=== PATIENT | female | born 1980 | race Caucasian/White ===

== ENCOUNTER 2017-05-01 14:52 | Outpatient (CLI) | payer MEDICAID ==
[~2017-05-01] VITALS: Ht 156.2 cm; Wt 67.3 kg
[~2017-05-01 14:52] MED LIST: METF500T4 PO; PREN1TAB49 PO
[2017-05-01] MEDS ORDERED: TERBUTALINE 1 ML ONE (15:32)
[2017-05-01] MEDS: LACTATED RINGER'S 1,000 ML IV SCH ×2 (15:47→17:02)
[2017-05-01 15:48] LABS: ADD UMIC NO; UR ASCORBIC ACID NEGATIVE (NEGATIVE); UR BILIRUBIN (Dip) NEGATIVE (NEGATIVE); UR BLOOD (Dip) NEGATIVE (NEGATIVE); UR CLARITY CLEAR (CLEAR); UR COLOR STRAW (YELLOW); UR GLUCOSE (Dip) NEGATIVE (NEGATIVE); UR KETONES (Dip) NEGATIVE (NEGATIVE); UR LEUKOCYTE ESTERASE (Dip) NEGATIVE Leu/ul (NEGATIVE); UR NITRITE (Dip) NEGATIVE (NEGATIVE); UR SPECIFIC GRAVITY (Dip) 1.002 (1.003-1.030); UR TOTAL PROTEIN (Dip) NEGATIVE (NEGATIVE); UR UROBILINOGEN (Dip) NEGATIVE (NEGATIVE)
[2017-05-01 15:49] VITALS: BP 124/59; PULSE 82; RESP 20; Ht 156.2 cm; Wt 67.3 kg
[2017-05-01] MEDS: TERBUTALINE 1 MG/ML INJ SC PRN ×2 (15:51→17:24)
[2017-05-01 16:17] LABS: BASOPHILS % 0.2 % (0.0-2.0); EOSINOPHILS # 0.1 10^3/ul (0.0-0.5); EOSINOPHILS % 1.4 % (0.0-7.0); HEMATOCRIT 30.7 % (37.0-47.0); HEMOGLOBIN 10.9 g/dl (12.0-16.0); LYMPHOCYTES # 1.4 10^3/ul (0.8-2.9); LYMPHOCYTES % 17.9 % (15.0-51.0); MEAN CORPUSCULAR HEMOGLOBIN 30.9 pg (29.0-33.0); MEAN CORPUSCULAR HGB CONC 35.5 g/dl (32.0-37.0); MEAN PLATELET VOLUME 9.9 fl (7.4-10.4); MONOCYTE # 0.5 10^3/ul (0.3-0.9); MONOCYTES % 6.3 % (0.0-11.0); NEUTROPHIL # 5.9 10^3/ul (1.6-7.5); NEUTROPHILS % 73.7 % (39.0-77.0); PLATELET COUNT 304 10^3/UL (140-415); RED BLOOD COUNT 3.53 10^6/ul (4.20-5.40); RED CELL DISTRIBUTION WIDTH 13.2 % (11.5-14.5); WHITE BLOOD COUNT 8.1 10^3/ul (4.8-10.8)
[2017-05-01 16:18] LABS: ADD SCAN DIFF NO
--- NOTE | 2017-05-01 16:19 | RADRPT ---
AMENDMENT: 05/01/2017 4:23:57 PM Tomy Sanchez MD The second item in the IMPRESSION section should state: Breech presentation. PROCEDURE: Obstetrical ultrasound CLINICAL INDICATION: contractions TECHNIQUE: Multiple sonographic images of the pelvis were obtained. The images were reviewed on a PACS workstation. COMPARISON: None FINDINGS: The cervix is not well visualized. There is a single viable intrauterine gestation. Cardiac activity is present with 152 beats per minute. There is a breech presentation. The placenta is fundal. There is no evidence for an abruption or placenta previa. There is a subjectively normal amount of amniotic fluid. Measurements were made in order to determine age. The results are as follows (cm): BPD =7.13 HC =25.73 AC =24.50 FL =5.15 Estimated gestational age by ultrasound of approximately 28 weeks, 2 days. The estimated date of delivery by ultrasound is 07/22/2017. Estimated gestational age by LMP of approximately 27 weeks, 5 days. The estimated date of delivery by LMP is 07/26/2017. EFW = 1198 grams (58th percentile) IMPRESSION: Single viable intrauterine gestation of approximately 28 weeks, 2 days . The estimated date of delivery is 07/22/2017 . Dating by ultrasound is within 4 days of dating by LMP. Cephalic presentation. Estimated weight is in the 58th percentile. RPTAT: EE Physician Jaelyn Date Time Electronically viewed and signed by Physician Jaelyn on 05/01/2017 16:24 /
--- NOTE | 2017-05-01 16:23 | RADRPT ---
PROCEDURE: US OB biophysical profile. CLINICAL INDICATION: evaluation TECHNIQUE: Multiple sonographic images of the pelvis were obtained. The images were reviewed on a PACS workstation. COMPARISON: No prior studies are available for comparison. FINDINGS: The cervix is closed and measures 4.1 cm in length. There is a single viable intrauterine gestation. Cardiac activity is present with 154 beats per min dolores. There is a breech presentation. The placenta is fundal. There is no evidence of placental abruption. There is a normal amount of amniotic fluid with in maximum vertical pocket of 4.1 cm. Biophysical profile: movement 2/2 tone 2/2. breathing 2/2 DIONICIO 2/2 Total 06/09 RPTAT: AA . IMPRESSION: Normal biophysical profile. Breech presentation. Physician Jaelyn Date Time Electronically viewed and signed by Physician Jaelyn on 05/01/2017 16:23 /
[2017-05-01 17:17] LABS: ALBUMIN 3.8 g/dl (3.3-4.9); ALBUMIN/GLOBULIN RATIO 1.35; CALCIUM 8.6 mg/dl (8.4-10.2); CREATININE 0.38 mg/dl (0.44-1.00); POTASSIUM 3.4 mmol/L (3.5-5.1); TOTAL PROTEIN 6.6 g/dl (6.1-8.1)
[2017-05-01] MEDS ORDERED: CALC600T5 PO (17:31)
[2017-05-01] MEDS ORDERED: FERR325C PO (17:31)
--- NOTE | 2017-05-01 17:44 | CONS ---
Date/Time of Note Date/Time of Note DATE: 05/01/17 TIME: 17:34 Consultation Date/Type/Reason Admit Date/Time May 01, 2017 OB triage consult Reason for Consultation This patient is a 37 years old 4 para 3 living 3.all 3 deliveries vaginally, came to the triage clinic complaining of vaginal pressure and possible labor. On examination she is a well-nourished well-developed lady in mid term. Her general vital signs basically are within normal limits with blood pressure 124/59, pulse rate of 82, respiration 20, and temperature 98.7 heart tones were around 150s On pelvic examination cervix was closed long and head was high membranes were intact Laboratory Tests Test 05/01/17 15:30 05/01/17 16:00 Urine Color STRAW Urine Clarity CLEAR Urine pH 7.0 Urine Specific [place] 1.002 Urine Ketones NEGATIVEmg/dL Urine Nitrite NEGATIVEmg/dL Urine Bilirubin NEGATIVEmg/dL Urine Urobilinogen NEGATIVEmg/dL Urine Leukocyte Esterase NEGATIVELeu/ul Urine Hemoglobin NEGATIVEmg/dL Urine Glucose NEGATIVEmg/dL Urine Total Protein NEGATIVEmg/dl Membranes Rupture NEGATIVE Fibronectin NEGATIVE White Blood Count 8.110^3/ul Red Blood Count 3.5310^6/ul Hemoglobin 10.9g/dl Hematocrit 30.7% Mean Corpuscular Volume 87.0fl Mean Corpuscular Hemoglobin 30.9pg Mean Corpuscular Hemoglobin Concent 35.5g/dl Red Cell Distribution Width 13.2% Platelet Count 96115^3/UL Mean Platelet Volume 9.9fl Neutrophils % 73.7% Lymphocytes % 17.9% Monocytes % 6.3% Eosinophils % 1.4% Basophils % 0.2% Nucleated Red Blood Cells % 0.0/100WBC Neutrophils # 5.910^3/ul Lymphocytes # 1.410^3/ul Monocytes # 0.510^3/ul Eosinophils # 0.110^3/ul Basophils # 0.010^3/ul Nucleated Red Blood Cells # 0.010^3/ul Sodium Level 134mmol/L Potassium Level 3.4mmol/L Chloride Level 104mmol/L Carbon Dioxide Level 22mmol/L Anion Gap 11 Blood Urea Nitrogen 7mg/dl Creatinine 0.38mg/dl Glucose Level 98mg/dl Calcium Level 8.6mg/dl Total Bilirubin 0.0mg/dl Direct Bilirubin 0.00mg/dl Indirect Bilirubin 0.0mg/dl Aspartate Amino Transf (AST/SGOT) 17IU/L Alanine Aminotransferase (ALT/SGPT) 19IU/L Alkaline Phosphatase 95IU/L Total Protein 6.6g/dl Albumin 3.8g/dl Globulin 2.80g/dl Albumin/Globulin Ratio 1.35 Current Medications Medications (Trade) Dose Ordered Sig/Rae Route PRN Reason Start Time Stop Time Status Last Admin Dose Admin Lactated Ringer's 1,000 ml @ 125 mls/hr Q8H IV 05/01/17 15:13 05/01/17 17:02 125 MLS/HR Terbutaline Sulfate (Brethine) 1 ml @ ud STK-MED ONCE .ROUTE 05/01/17 15:32 05/01/17 15:33 DC Terbutaline Sulfate (Brethine) 0.25 mg Q30MIN PRN SC CONTRACTIONS 05/01/17 15:30 05/01/17 17:24 0.25 MG Constitutional: No chills, No diaphoresis, No disoriented, No febrile, No improved, No no complaints, No other, No poor po, No requiring IVF, No requiring O2 Eyes: No discharge, No no complaints, No other, No pain, No redness, No visual change ENT: No bleeding, No congestion, No discharge, No dysphagia, No no complaints, No other, No pain, No sore throat Respiratory: No cough, No no complaints, No other, No pain, No pleuritic pain, No shortness of breath, No sputum, No wheezing Cardiovascular: No chest pain, No edema, No lightheadedness, No no complaints, No orthopenea, No other, No palpitations, No paroxysmal nocturnal dyspnea Gastrointestinal: No blood, No constipation, No decreased appetite, No diarrhea , No flatus, No nausea, No no complaints, No other, No pain, No passing stool, No vomiting Genitourinary: other (As I mentioned the cervix was closed long with a high presentation), No bleeding, No discharge, No dysuria, No flank pain, No hematuria, No no complaints Musculoskeletal: No back pain, No bone/joint pain, No neck pain, No no complaints, No other, No restricted range of motion, No swelling Skin: No bruising, No erythema, No laceration, No no complaints, No other, No pruritis, No rash, No skin lesions Neurologic: No confusion, No dizziness, No focal-weakness, No headache, No no complaints, No other, No seizure, No syncope Endocrine: No dry skin, No no complaints, No other, No polydypsia, No polyuria , No temp intolerance Additional Comments The lab studies her fibronectin is negative, urine test is basically normal ,CBC is normal except for a mild degree of anemia with hemoglobin of 10.9 hematocrit 30.7 ,platelet normal 304,000 The rest of the tests were normal On ultrasound study report is a single viable intrauterine gestation with cardiac activity 154 bpm, breech presentation cervical length was 4.1 cm , biophysical profile 06/09 ,estimated weight was 1198 g which is 58th percentile the general impression was single viable intrauterine gestation approximately 28 weeks and 2 days estimated delivery date July 22, 2007 Patient was given given hydration which helped she stopped he contraction. however due to reoccurrence of contraction at the end of examination she will be kept another half an hour if no more contraction she will go home We also gave her labor precaution. To return to triage clinic in case of labor vaginal bleeding or any low movement Social History Smoking Status: Never smoker Exam/Review of Systems Vital Signs Vitals Vital Signs Date Time Temp Pulse Resp B/P Pulse Ox O2 Delivery O2 Flow Rate FiO2 05/01/17 15:49 98.7 82 20 124/59 99 Room Air Results Result Diagram: 05/01/17 1600 05/01/17 1600 Results 24 hrs Laboratory Tests Test 05/01/17 15:30 05/01/17 16:00 Urine Color STRAW Urine Clarity CLEAR Urine pH 7.0 Urine Specific [place] 1.002 L Urine Ketones NEGATIVE Urine Nitrite NEGATIVE Urine Bilirubin NEGATIVE Urine Urobilinogen NEGATIVE Urine Leukocyte Esterase NEGATIVE Urine Hemoglobin NEGATIVE Urine Glucose NEGATIVE Urine Total Protein NEGATIVE Membranes Rupture NEGATIVE Fibronectin NEGATIVE White Blood Count 8.1 Red Blood Count 3.53 L Hemoglobin 10.9 L Hematocrit 30.7 L Mean Corpuscular Volume 87.0 Mean Corpuscular Hemoglobin 30.9 Mean Corpuscular Hemoglobin Concent 35.5 Red Cell Distribution Width 13.2 Platelet Count 304 Mean Platelet Volume 9.9 Neutrophils % 73.7 Lymphocytes % 17.9 Monocytes % 6.3 Eosinophils % 1.4 Basophils % 0.2 Nucleated Red Blood Cells % 0.0 Neutrophils # 5.9 Lymphocytes # 1.4 Monocytes # 0.5 Eosinophils # 0.1 Basophils # 0.0 Nucleated Red Blood Cells # 0.0 Sodium Level 134 L Potassium Level 3.4 L Chloride Level 104 Carbon Dioxide Level 22 Anion Gap 11 Blood Urea Nitrogen 7 Creatinine 0.38 L Glucose Level 98 Calcium Level 8.6 Total Bilirubin 0.0 L Direct Bilirubin 0.00 Indirect Bilirubin 0.0 Aspartate Amino Transf (AST/SGOT) 17 Alanine Aminotransferase (ALT/SGPT) 19 Alkaline Phosphatase 95 Total Protein 6.6 Albumin 3.8 Globulin 2.80 Albumin/Globulin Ratio 1.35 Medications Medications Current Medications Lactated Ringer's (Lr) 1,000 ml @ 125 mls/hr Q8H IV Last administered on 17:02; Admin Dose 125 MLS/HR; Start 05/01/17 at 15:13 Terbutaline Sulfate (Brethine) 0.25 mg Q30MIN PRN SC CONTRACTIONS Last administered on 05/01/17 17:24; Admin Dose 0.25 MG; Start 05/01/17 at 15:30 BLAISE LEIVA MD May 01, 2017 17:44
--- NOTE | 2017-05-01 18:30 | TRIAGE ---
OB Triage Datetime Report Generated by CPN: 05/01/2017 18:30 Datetime: 05/01/2017 17:49 Contraction Comments: U/S TAKEN OFF TO ACCURATELY MONITOR UC'S Comments: MATERNAL PULSE NOTED, Datetime: 05/01/2017 17:23 Labor Evaluation Frequency: 0 Monitor Mode: External Duration (sec)2399: 0 Pattern: Normal: <= 5 Contractions in 10 Minutes Resting Tone [place]: Relaxed Contraction Comments: PT DENIES UC'S AT THIS TIME Heart Rate FHR Baseline Rate: 150 Monitor Mode: External US Variability: Moderate 6-25 bpm Accelerations: 15X15 Decelerations: None Category: Category I Comments: NST REACTIVE FOR GESTATIONAL AGE Pain Assessment Pain Scale: 2 Pain Presence: Intermittent Pain Type: Contraction Pain Location: Back Pain Goal: 2 Pain Assessment Comments: PT REPORTS FEELING MUCH BETTER Datetime: 05/01/2017 16:30 Labor Evaluation Frequency: 3-5 Monitor Mode: External Duration (sec)2399: 40-60 Quality: Mild Pattern: Normal: <= 5 Contractions in 10 Minutes Resting Tone [place]: Relaxed Heart Rate FHR Baseline Rate: 155 Monitor Mode: External US Variability: Moderate 6-25 bpm Accelerations: 15X15 Decelerations: None Category: Category I Datetime: 05/01/2017 15:44 Labor Evaluation Frequency: 2-3 Monitor Mode: External Duration (sec)2399: 20-40 Quality: Mild Pattern: Normal: <= 5 Contractions in 10 Minutes Resting Tone [place]: Relaxed Contraction Comments: PALPATED UC'S MILD Heart Rate FHR Baseline Rate: 155 Monitor Mode: External US Accelerations: 15X15 Decelerations: None Category: Category I Comments: NST REACTIVE FOR GESTATIONAL AGE Datetime: 05/01/2017 15:27 Time of Arrival: 05/01/2017 14:50 EGA: 27.1 Arrived By: Ambulatory Arrived From: Home Chief Complaint: VAGINAL PRESSURE Movement: Present Contractions: Regular Contractions: 2-4 Rupture of Membranes: Unsure Vaginal Bleeding: None Vaginal Discharge: Denies Recent Sexual Intercouse: Denies Abdominal Trauma: Not Applicable Patient Complaints: Contractions; Cramping; Back Pain Time Provider Notified: 05/01/2017 14:55 Provider Notified: DR. LEIVA Initial Plan: EFM AND CALL MD Maternal Assessment Level of Consciousness: Fully Conscious DTR's/Clonus: DTRs 2+; No Clonus Headache: Denies Blurred Vision: No Respiratory Effort: Unlabored; Regular Rhythm; Equal Expansion Breath Sounds, Left: Clear and Equal Breath Sounds, Right: Clear and Equal Nausea/Vomiting: Denies RUQ Epigastric Pain: Denies Facial Edema: None Fall Risk Assessment History of Falling: (0) No Secondary Diagnosis: (0) No Ambulatory Aid: (0) Bedrest/Nurse Assist IV Therapy: (0) No Gait: (0) Normal/Bedrest/Immobile Mental Status: (0) Oriented to Own Ability Fall Score: 0 Fall Risk Score Definition: No Risk: No action required Datetime: 05/01/2017 15:26 Stage of : OB Triage Maternal Assessment Level of Consciousness: Fully Conscious DTR's/Clonus: DTRs 2+; No Clonus Headache: Denies Blurred Vision: No Respiratory Effort: Unlabored; Regular Rhythm; Equal Expansion Breath Sounds, Left: Clear and Equal Breath Sounds, Right: Clear and Equal Nausea/Vomiting: Denies RUQ Epigastric Pain: Denies Lower Extremities Edema: Bilateral Lower Extremities Degree: 1+ Upper Extremities Edema: None Degree: None Facial Edema: None Temperature Route: Axillary Fall Risk Assessment History of Falling: (0) No Secondary Diagnosis: (0) No Ambulatory Aid: (0) Bedrest/Nurse Assist IV Therapy: (0) No Gait: (0) Normal/Bedrest/Immobile Mental Status: (0) Oriented to Own Ability Fall Score: 0 Fall Risk Score Definition: No Risk: No action required
== END 2017-05-01 18:32 | disposition home or self-care (01) ==
LOC: OBT 14:52 → L-D 14:53 → OBT 18:32
PROVIDERS: ATTEND Obstetrics & Gynecology
DX: O26.892 Other specified pregnancy related conditions, second trimester (principal); Z3A.27 27 weeks gestation of pregnancy; R10.2 Pelvic and perineal pain
CPT/HCPCS: 36415; 76815; 76817; 76818; 80053; 81003; 82731; 84112; 85025; 96360; 96361; 96372; J3105; J7120; Z7500; G0463

== ENCOUNTER 2017-07-17 09:42 | Inpatient (IN) | payer MEDICAID ==
[~2017-07-17] VITALS: Ht 152.4 cm; Wt 73.1 kg
[~2017-07-17 09:42] MED LIST changes: +CALC600T5 PO; +FERR325C PO; -METF500T4 PO
[2017-07-17 10:26] VITALS: Ht 152.4 cm; Wt 73.1 kg
--- NOTE | 2017-07-17 10:26 | TRIAGE ---
OB Triage Datetime Report Generated by CPN: 07/17/2017 10:26 Datetime: 07/17/2017 09:53 Vaginal Exam Dilatation (cms): 2.0 Effacement (%): 50 Station: -2 Exam By: Barbara RN Datetime: 07/17/2017 09:45 Assessment Type: Triage Maternal Assessment Level of Consciousness: Fully Conscious DTR's/Clonus: DTRs 2+; No Clonus Headache: Denies Blurred Vision: No Respiratory Effort: Unlabored; Regular Rhythm; Equal Expansion Breath Sounds, Left: Clear and Equal Breath Sounds, Right: Clear and Equal Nausea/Vomiting: Denies RUQ Epigastric Pain: Denies Lower Extremities Edema: Bilateral Lower Extremities Degree: 1+ Upper Extremities Edema: None Degree: None Facial Edema: None Fall Risk Assessment History of Falling: (0) No Secondary Diagnosis: (0) No Ambulatory Aid: (0) Bedrest/Nurse Assist IV Therapy: (0) No Gait: (0) Normal/Bedrest/Immobile Mental Status: (0) Oriented to Own Ability Fall Score: 0 Fall Risk Score Definition: No Risk: No action required Datetime: 07/17/2017 09:35 Time of Arrival: 07/17/2017 09:35 EGA: 38.1 Arrived By: Wheelchair Arrived From: Emergency Dept Chief Complaint: UC Movement: Present Contractions: Regular Time Contractions Began: 07/17/2017 05:30 Contractions: 2 Rupture of Membranes: Denies Vaginal Discharge: Denies Recent Sexual Intercouse: Denies Abdominal Trauma: Not Applicable Patient Complaints: Contractions Time Provider Notified: 07/17/2017 10:15 Provider Notified: Jerry Initial Plan: NST, VE Datetime: 05/01/2017 15:27 EGA: 27.1 Fall Score: 0 Fall Risk Score Definition: No Risk: No action required Datetime: 05/01/2017 15:26 Fall Score: 0 Fall Risk Score Definition: No Risk: No action required
[2017-07-17] MEDS ORDERED: MISOPROSTOL 200 MCG TAB PR PRN (10:30)
[2017-07-17] MEDS ORDERED: AMPICILLIN 2 GM/NS (PMX) 100 ML IV ONE (10:30)
[2017-07-17] MEDS ORDERED: OXYTOCIN 30 UNITS/LR 500 ML IV PRN (10:30)
[2017-07-17] MEDS ORDERED: OXYTOCIN 30 UNITS/LR 500 ML IV SCH ×3 (10:30)
[2017-07-17] MEDS ORDERED: BUTORPHANOL 2 MG INJ IV PRN (10:30)
[2017-07-17] MEDS ORDERED: IBUPROFEN 600 MG TAB PO PRN (10:30)
[2017-07-17] MEDS ORDERED: CARBOPROST 250 MCG INJ IM PRN (10:30)
[2017-07-17] MEDS ORDERED: METHYLERGONOVINE 0.2 MG INJ IM PRN (10:30)
[2017-07-17] MEDS ORDERED: LIDOCAINE 1% (MPF) 30 ML INJ INJ PRN (10:30)
[2017-07-17] MEDS ORDERED: HYDROCODONE/APAP (5/325) TAB PO PRN (10:30)
[2017-07-17 10:49] VITALS: BP 124/77; PULSE 75; RESP 18
[2017-07-17] MEDS: LACTATED RINGER'S 1,000 ML IV SCH ×3 (10:52→20:13)
[2017-07-17] MEDS ORDERED: LACTATED RINGER'S 1,000 ML IV PRN (11:00)
[2017-07-17 11:41] LABS: BASOPHILS % 0.4 % (0.0-2.0); EOSINOPHILS % 0.5 % (0.0-7.0); HEMOGLOBIN 12.5 g/dl (12.0-16.0); LYMPHOCYTES # 1.4 10^3/ul (0.8-2.9); LYMPHOCYTES % 17.2 % (15.0-51.0); MEAN CORPUSCULAR HGB CONC 34.7 g/dl (32.0-37.0); MEAN CORPUSCULAR VOLUME 86.5 fl (82.0-101.0); MONOCYTE # 0.4 10^3/ul (0.3-0.9); MONOCYTES % 4.9 % (0.0-11.0); NEUTROPHIL # 6.1 10^3/ul (1.6-7.5); NEUTROPHILS % 76.4 % (39.0-77.0); PLATELET COUNT 281 10^3/UL (140-415); RED BLOOD COUNT 4.16 10^6/ul (4.20-5.40); WHITE BLOOD COUNT 7.9 10^3/ul (4.8-10.8)
[2017-07-17 12:05] LABS: INR 0.88; PROTIME 11.9 Sec (12.2-14.2); PT RATIO 0.9
[2017-07-17 12:06] LABS: PARTIAL THROMBOPLASTIN TIME 24.2 Sec (25.0-35.0)
[2017-07-17] MEDS: AMPICILLIN 1 GM/NS (PMX) 50 ML IV SCH ×3 (15:35→22:31)
[2017-07-17] MEDS ORDERED: FENTAnyl 2MCG/ML-ROPIV 0.2% 100 ML ONE (18:05)
[2017-07-17] MEDS: FENTAnyl 2MCG/ML-ROPIV 0.2% 100 ML BAG EPI SCH (18:58)
[2017-07-17] MEDS ORDERED: ONDANSETRON 4 MG INJ IV PRN (19:00)
[2017-07-17] MEDS ORDERED: NALOXONE (0.4 MG/ML) INJ IV PRN (19:00)
[2017-07-17] MEDS ORDERED: DIPHENHYDRAMINE 50 MG INJ IV PRN (19:00)
[2017-07-18] MEDS: FENTAnyl 2MCG/ML-ROPIV 0.2% 100 ML BAG EPI SCH (01:01)
[2017-07-18] MEDS: AMPICILLIN 1 GM/NS (PMX) 50 ML IV SCH ×2 (02:47→06:55)
[2017-07-18] MEDS: LACTATED RINGER'S 1,000 ML IV SCH (04:16)
--- NOTE | 2017-07-18 08:43 | HP ---
Date/Time of Note Date/Time of Note DATE: 07/18/17 TIME: 08:42 OB - History Hx of Present Free Text/Dictation term preg in labor Care: Good Care Ultrasounds: Normal mid trimester US Obstetrical Complications: None Medical Complications: None Past Family/Social History * Past Medical, Surgical, Family and Obstetric Histories reviewed from chart. OB Admission Exam Vital Signs Vital Signs Vital Signs Date Time Temp Pulse Resp B/P Pulse Ox O2 Delivery O2 Flow Rate FiO2 07/17/17 10:49 97.8 75 18 124/77 98 Room Air Physical Exam HEENT: WNL Heart: Rhythm Normal Lungs: Clear, Equal Abdomen: WNL Extremities: Normal Reflexes: Normal Cervical Dilatation: 10cm Effacement: 100% Station: +3 Membranes: Ruptured Amniotic Fluid: Clear Heart Rate: 130's Accelerations: Accelerations Present Decelerations: No Decelerations Varibility: Marked Contractions on Admission: 6-10 Minutes Apart Intensity: Mild Last 72 hours Lab Results CBC & BMP 07/17/17 10:20 OB Assessment/Plan Plan: Expectant Management ILEANA SANCHEZ MD Jul 18, 2017 08:43
--- NOTE | 2017-07-18 08:44 | LDN ---
Date/Time of Note Date/Time of Note DATE: 07/18/17 TIME: 08:43 Delivery Summary term preg. NSD Placenta Delivered: Spontaneously Meconium: none Episiotomy: No Perineal laceration: 1 Anesthesia type: Epidural Estimated blood loss: 300 Sponge & Needle done & correct: Yes All needle counts correct: Yes Any foreign bodies felt in the: No Problems: ILEANA SANCHEZ MD Jul 18, 2017 08:44
[2017-07-18] MEDS ORDERED: OXYTOCIN 30 UNITS/LR 500 ML IV PRN (10:30)
[2017-07-18] MEDS ORDERED: ACETAMINOPHEN 325 MG TAB PO PRN (10:30)
[2017-07-18] MEDS ORDERED: MAGNESIUM HYDROXIDE 30ML CUP PO PRN (10:30)
[2017-07-18] MEDS ORDERED: LANOLIN 7 GM TUBE TOP PRN (10:30)
[2017-07-18] MEDS ORDERED: ZOLPIDEM 5 MG TAB PO PRN (10:30)
[2017-07-18] MEDS ORDERED: METHYLERGONOVINE 0.2 MG INJ IM PRN (10:30)
[2017-07-18] MEDS ORDERED: MISOPROSTOL 200 MCG TAB PR PRN (10:30)
[2017-07-18] MEDS ORDERED: CARBOPROST 250 MCG INJ IM PRN (10:30)
[2017-07-18] MEDS ORDERED: WITCH HAZEL/GLYCERIN PAD PR PRN (10:30)
[2017-07-18] MEDS ORDERED: DIPHENHYDRAMINE 25 MG CAP PO PRN (10:30)
[2017-07-18] MEDS ORDERED: BENZOCAINE 20% 56 ML SPRAY TOP PRN (10:30)
[2017-07-18] MEDS: OXYTOCIN 30 UNITS/LR 500 ML IV SCH ×2 (10:31→14:36)
[2017-07-18 10:35] VITALS: BP 128/92; PULSE 65; RESP 18
[2017-07-18] MEDS: LACTATED RINGER'S 1,000 ML IV* SCH ×3 (10:35→18:43)
[2017-07-18 11:42] VITALS: BP 130/78; PULSE 72; RESP 18
[2017-07-18] MEDS: IBUPROFEN 800 MG TAB PO SCH ×2 (11:42→17:41)
[2017-07-18 16:10] VITALS: BP 105/59; PULSE 66; RESP 16
[2017-07-18 20:00] VITALS: BP 115/60; PULSE 61; RESP 18
[2017-07-18] MEDS: SENNA/DOCUSATE NA (8.6MG/50MG) TAB PO PRN (20:31)
[2017-07-18] MEDS: VITAMIN A & D 5 GM OINT PACKET TOP SCH (20:31)
[2017-07-19] VITALS: BP 94/50; PULSE 62; RESP 18
[2017-07-19] MEDS: IBUPROFEN 800 MG TAB PO SCH ×4 (00:32→17:46)
[2017-07-19] MEDS: LACTATED RINGER'S 1,000 ML IV* SCH ×2 (02:02→10:02)
[2017-07-19 04:00] VITALS: BP 100/51; PULSE 60; RESP 20
[2017-07-19 08:30] VITALS: BP 104/56; PULSE 63; RESP 18
[2017-07-19 09:04] LABS: BASOPHILS % 0.3 % (0.0-2.0); EOSINOPHILS # 0.1 10^3/ul (0.0-0.5); EOSINOPHILS % 1.7 % (0.0-7.0); HEMATOCRIT 30.7 % (37.0-47.0); HEMOGLOBIN 10.6 g/dl (12.0-16.0); LYMPHOCYTES # 1.9 10^3/ul (0.8-2.9); LYMPHOCYTES % 26.3 % (15.0-51.0); MEAN CORPUSCULAR HGB CONC 34.5 g/dl (32.0-37.0); MEAN PLATELET VOLUME 10.7 fl (7.4-10.4); MONOCYTE # 0.3 10^3/ul (0.3-0.9); MONOCYTES % 4.7 % (0.0-11.0); NEUTROPHIL # 4.8 10^3/ul (1.6-7.5); NEUTROPHILS % 66.3 % (39.0-77.0); PLATELET COUNT 210 10^3/UL (140-415); RED BLOOD COUNT 3.53 10^6/ul (4.20-5.40); RED CELL DISTRIBUTION WIDTH 13.2 % (11.5-14.5); WHITE BLOOD COUNT 7.2 10^3/ul (4.8-10.8)
[2017-07-19] MEDS: VITAMIN A & D 5 GM OINT PACKET TOP SCH ×2 (09:26→21:13)
[2017-07-19] MEDS: SENNA/DOCUSATE NA (8.6MG/50MG) TAB PO PRN ×2 (09:26→21:13)
[2017-07-19 15:25] VITALS: BP 125/58; PULSE 67; RESP 18
[2017-07-19 20:00] VITALS: BP 111/58; PULSE 62; RESP 20
[2017-07-20] MEDS: IBUPROFEN 800 MG TAB PO SCH ×4 (00:35→17:50)
[2017-07-20] MEDS: HYDROCODONE/APAP (5/325) TAB PO PRN ×2 (01:19→09:16)
[2017-07-20 04:00] VITALS: BP 118/56; PULSE 62; RESP 20
[2017-07-20 08:00] VITALS: BP 116/71; PULSE 62; RESP 16
[2017-07-20] MEDS ORDERED: MEASLES,MUMPS,RUBELLA VACCINE INJ SC* ONE (09:00)
[2017-07-20] MEDS ORDERED: VARICELLA VACCINE LIVE/PF 1,350 UNIT/0.5 ML ML SC* ONE (09:00)
[2017-07-20] MEDS ORDERED: DIPHTH/TET/ACEL PERTUSS (ADULT) 0.5 ML VIAL IM* ONE (09:00)
[2017-07-20] MEDS: VITAMIN A & D 5 GM OINT PACKET TOP SCH (09:16)
--- NOTE | 2017-07-20 11:12 | DS ---
Date/Time of Note Date/Time of Note DATE: 07/20/17 TIME: 11:12 Discharge Summary Admission/Discharge Info Admit Date/Time Jul 17, 2017 at 10:15 Discharge Date/Time Discharge Diagnosis term preg Patient Condition: Stable Hospital Course unremarkable Home Meds Reported Medications Calcium Carbonate (CALCIUM) 600 Mg Tablet, 600 MG PO, TAB 05/01/17 Ferrous Sulfate (Iron) 325 Mg Capsule.er, 325 MG PO, CAP 05/01/17 Vits W-Ca,Fe,Fa(<1MG) () 1 Tab Tablet, 1 TAB PO DAILY, #1 01/02/13 Primary Care Provider Care Physician No Primary ILEANA SANCHEZ MD Jul 20, 2017 11:12
--- NOTE | 2017-07-20 11:12 | QN ---
Documentation Comment doing well vss d/c home today ILEANA SANCHEZ MD Jul 20, 2017 11:11
[2017-07-20 16:13] VITALS: BP 118/67; PULSE 62; RESP 18
== END 2017-07-20 18:25 | disposition home or self-care (01) | DRG 775 ==
LOC: L-D 09:42 → OBT 09:42 → L-D 10:15 → OBT 10:30 → L-D 14:11 → PP1 07-18 10:26
PROVIDERS: ADMIT Obstetrics & Gynecology; ATTEND Obstetrics & Gynecology
PROC: 10E0XZZ Delivery of Products of Conception, External Approach (ICD-10-PCS; principal; 2017-07-17)
PROC: 0HQ9XZZ Repair Perineum Skin, External Approach (ICD-10-PCS; 2017-07-17)
DX: O70.0 First degree perineal laceration during delivery (principal); Z37.0 Single live birth; Z3A.38 38 weeks gestation of pregnancy
CPT/HCPCS: 62319; 85025; 85610; 85730; 86592; 86900; 86901; 87340; 90715; 90716; G0463; J0290; J2590; J3010; J7120